=== PATIENT | male | born 1965 | race Caucasian/White ===

== ENCOUNTER → 2016-12-12 | Day surgery (SDC) | payer OTHER ==
[~2016-12-12] VITALS: Ht 177.8 cm; Wt 91.9 kg
[~2016-12-12] MED LIST: ACETAMINOPHEN 1000 MG/100 ML VIAL IV SCH; ALBU6.7H INH; CHLORHEXIDINE GLUCONATE 2 % 1 PACK (2 CLOTHS) TOPICAL PRN; INSULIN HUMAN REGULAR 1,000 UNITS/10 ML VIAL SQ PRN; LACTATED RINGER'S 1000 ML IV PRN; LIPI20TA PO; METOPROLOL TARTRATE 25 MG TAB PO PRN; POVIDONE IODINE 5% (ANTISEPSIS KIT) 4 APPLICATIONS EACH NARE PRN; SODIUM CHLORID 0.9% 500 ML IV PRN; ceFAZolin 2 GM PREMIX 50 ML IV SCH
--- NOTE | 2016-12-12 07:09 | RADRPT ---
EXAM DATE/TIME: 12/12/2016 06:41 [place] COMPARISON: No previous studies available for comparison. INDICATIONS : Pain after fall MEDICAL HISTORY : None. SURGICAL HISTORY : None. ENCOUNTER: Initial ACUITY: 1 day PAIN SCORE: 8/10 LOCATION: Left Ankle FINDINGS: Two view exam was performed of the left ankle. There is some swelling about the lateral malleolus. Po ssible minimally displaced avulsion fracture off the inferior aspect of the lateral malleolus. Old he aled fracture deformity of the distal fibular diaphysis. CONCLUSION: 1. Old healed fracture deformity of the distal fibular diaphysis. 2. Possible avulsion injury off the inferior aspect of the lateral malleolus with associated soft tis pedro swelling. Jossue Carl MD on December 12, 2016 at 6:59 Board Certified Radiologist. This report was verified electronically.
[2016-12-12 07:23] VITALS: BP 146/88; PULSE 72; RESP 16; TEMP 98.1; O2SAT 96
== END | disposition home or self-care (01) ==
LOC: HSDC 06:05
PROVIDERS: ATTEND Surgery
DX: K40.91 Unilateral inguinal hernia, without obstruction or gangrene, recurrent (principal); M25.572 Pain in left ankle and joints of left foot; J45.909 Unspecified asthma, uncomplicated; E78.5 Hyperlipidemia, unspecified; E66.3 Overweight; Z68.29 Body mass index [BMI] 29.0-29.9, adult; Z53.09 Procedure and treatment not carried out because of other contraindication
CPT/HCPCS: 73600; G0463; L2114; 99211

== ENCOUNTER → 2017-01-23 | Day surgery (SDC) | payer OTHER ==
[~2017-01-23] MED LIST changes: +ACETAMINOPHEN 1000 MG/100 ML VIAL IV ONE; +BUPIVACAINE HCL PF 0.5% 30 ML VIAL ONE; +BUPIVACAINE LIPOSOME PF 1.3% 20 ML VIAL ONE; -CHLORHEXIDINE GLUCONATE 2 % 1 PACK (2 CLOTHS) TOPICAL PRN; -INSULIN HUMAN REGULAR 1,000 UNITS/10 ML VIAL SQ PRN; +KETOROLAC TROMETHAMINE 30 MG/ML (IVP) VIAL IV PUSH ONE; -LACTATED RINGER'S 1000 ML IV PRN; -METOPROLOL TARTRATE 25 MG TAB PO PRN; +MIDAZOLAM HCL 2 MG/2 ML VIAL ONE; +ONDANSETRON HCL 4 MG/2 ML VIAL IV PUSH ONE; -POVIDONE IODINE 5% (ANTISEPSIS KIT) 4 APPLICATIONS EACH NARE PRN; +PROPOFOL 200 MG/20 ML AMP IV ONE; -SODIUM CHLORID 0.9% 500 ML IV PRN; +ceFAZolin 2 GM PREMIX 50 ML ONE
--- NOTE | 2017-01-23 23:32 | MP ---
cc: ANGEL LUISLGY DATE OF SURGERY 01/23/17 PREOPERATIVE DIAGNOSIS Recurrent right inguinal hernia. POSTOPERATIVE DIAGNOSIS Recurrent right inguinal hernia. PROCEDURE Repair of recurrent right inguinal hernia with PerFix light plug SURGEON Theresa Ibarra MD ANESTHESIA General. OPERATIVE FINDINGS The patient was found to have a very small less than 2 cm recurrence just medial to the internal ring. He has also seen to have a large amount of very hard mesh lateral to the internal ring which had a metal clip in it. No other abnormalities were noted. OPERATIVE PROCEDURE The patient was brought to the operating room and, after satisfactory general anesthesia had been obtained, the abdomen was prepped and draped in the usual sterile fashion. Exparel was infiltrated into the surrounding tissue for local anesthesia and a transverse right inguinal incision was made, carried down sharply through the subcutaneous tissue, with the cautery being used for hemostasis. Incision was deepened through the external oblique fascia which was opened in the direction of its fibers down to and through the external ring. The underside of the fascia was cleaned and the spermatic cord was isolated with a [place] drain with minimal difficulty. Exploration of the inguinal floor revealed the above-noted findings. The mesh was addressed first and it was sharply resected and sent for permanent pathology. It should be noted that the main portion of the mesh was left intact. It was just the grossly indurated portion along with the metal clip that was resected. The hernia sac was then identified medial to the spermatic cord and it was circumferentially cleared of adhesions and reduced within the properitoneal space without entering the peritoneal cavity itself. The defect was sized and it was estimated that in view of the fact that the remainder of the inguinal floor was completely intact that it could be repaired with a small plug. A small PerFix light plug was thus selected and placed within the defect. It was secured with a single 0 Vicryl suture. Hemostasis was then checked for and found to be satisfactory. Gentle traction on the returned it to its proper place in the scrotum after which the external oblique fascia was closed with a running 3-0 Vicryl suture. The subcutaneous tissue was closed with interrupted 3-0 Vicryl suture and the skin closed with interrupted 4-0 Monocryl subcuticular stitches. Steri-Strips, sterile drapes were placed. The patient was then awakened and taken from the operating room, in satisfactory condition, having tolerated the procedure without a problem. Estimated blood loss was less than 15 mL. The instrument count, sponge count and needle counts were reported as being correct x2 at the end of the procedure. MD JOSEF Skaggs/ /11:48 AM /11:18 PM
== END | disposition home or self-care (01) ==
LOC: ESDC 08:39
PROVIDERS: ATTEND Surgery
DX: K40.91 Unilateral inguinal hernia, without obstruction or gangrene, recurrent (principal)
CPT/HCPCS: 00830; 49520; 88302; C1781; C9290; J0131; J0690; J1885; J2250; J2405; J3010; 88300